=== PATIENT | female | born 1985 | race Caucasian/White ===

== ENCOUNTER 2021-12-15 11:16 | Inpatient (IN) ==
[2021-12-15] MEDS ORDERED: ACETAMINOPHEN 325 MG TABLET PO PRN (21:10)
[2021-12-15] MEDS ORDERED: ONDANSETRON 4 MG/2 ML VIAL IV PRN (21:10)
[2021-12-15] MEDS ORDERED: GLUCAGON 1 MG VIAL IM PRN (21:10)
[2021-12-15 21:12] LABS: Bilirubin,Urine Negative (Negative); Blood, Urine Negative (Negative); Glucose,Urine (UA) Negative (Negative); Ketones,Urine Negative (Negative); Mucus,Urine Occasional /LPF (Occasional); Nitrite,Urine Negative (Negative); Protein,Urine Negative; RBC,Urine 1 /HPF (0-4); Squamous Epithelial Cell,Urine Occasional /HPF (0-10); Urine Appearance CLEAR (Clear); Urine Color Yellow (Yellow); Urine Specific Gravity 1.013 (1.001-1.035); Urine Urobilinogen < 2.0 EU/DL (<2.0)
[2021-12-15] MEDS ORDERED: DEXTROSE 10% 25 GM/250 ML BAG IV PRN (21:13)
[2021-12-15 21:28] LABS: % Iron Saturation 2.6 % (18-50); Alanine Aminotransferase 10 U/L (13-56); Albumin 3.3 G/DL (3.4-5.0); Alkaline Phosphatase 45 U/L (45-117); Aspartate Amino Transferase 10 U/L (0-37); Basophils # 0.1 10*3/uL (0.0-0.2); Bilirubin,Total < 0.39 MG/DL (0.20-1.00); Blood Urea Nitrogen 8 MG/DL (7-18); Calcium 8.6 MG/DL (8.5-10.1); Carbon Dioxide 27 MMOL/L (21-32); Eosinophils # 0.3 10*3/uL (0.0-0.87); Eosinophils % 5.1 % (0.00-10.9); Estimated Glom Filtration Rate 122 ML/MIN; Ferritin 0.9 ng/mL (8-252); Free T4 (Free Thyroxine) 1.02 NG/DL (0.76-1.46); Glucose 102 MG/DL (74-106); Immature Granulocytes % 0.3 %; Immature Granulocytes Absolute 0.02 #; Iron 12 UG/DL (50-170); Iron Binding Capacity 458 UG/DL (250-450); Lymphocytes # 2.1 10*3/uL (1.4-4.0); Lymphocytes % 35.8 % (21.3-54.2); Mean Corpuscular HGB Conc 25.9 GM/DL (32-36); Mean Corpuscular Volume 64.4 FL (87-102); Mean Platelet Volume 10.3 FL (9.6-12.0); Monocytes % 9.9 % (1.7-12.7); Neutrophils % 47.9 % (38.7-73.9); Osmolality,Calculated 278.3 MOS/KG (273-304); Platelet Count 437 T/CUMM (130-400); Potassium 3.5 MMOL/L (3.5-5.1); Red Blood Count 3.12 MC/CUMM (3.8-5.5); Sodium 141 MMOL/L (136-145); Total Protein 6.8 G/DL (6.4-8.2); White Blood Count 5.9 T/CUMM (4-12)
[2021-12-15] MEDS ORDERED: LACTATED RINGERS 1,000 ML IV SCH (21:30)
[2021-12-15] MEDS ORDERED: SODIUM CHLORIDE 0.9% 1,000 ML IV PRN (21:48)
[2021-12-15] MEDS ORDERED: IRON SUCROSE 200 MG in SODIUM CHLORIDE 0.9% 100 ML IV ONE (21:49)
[2021-12-15 21:51] LABS: Hematocrit 20.1 VOL% (35.7-47.0); Hemoglobin 5.2 GM/DL (12.0-16.0)
[2021-12-15 22:45] LABS: Platelet Estimate Increased
[2021-12-15 22:46] LABS: Hypochromia 1+; Microcytosis 1+
[2021-12-16 08:57] LABS: Basophils # 0.1 10*3/uL (0.0-0.2); Basophils % 1.3 % (0.0-0.8); Eosinophils # 0.3 10*3/uL (0.0-0.87); Hematocrit 23.4 VOL% (35.7-47.0); Immature Granulocytes % 0.2 %; Immature Granulocytes Absolute 0.01 #; Lymphocytes # 1.8 10*3/uL (1.4-4.0); Lymphocytes % 33.9 % (21.3-54.2); Mean Corpuscular HGB Conc 27.8 GM/DL (32-36); Mean Corpuscular Volume 68.4 FL (87-102); Mean Platelet Volume 11.1 FL (9.6-12.0); Monocytes % 10.8 % (1.7-12.7); Neutrophils % 48.8 % (38.7-73.9); Red Blood Count 3.42 MC/CUMM (3.8-5.5); Red Cell Distribution Width 19.9 % (9.3-17.3); White Blood Count 5.4 T/CUMM (4-12)
[2021-12-16 08:59] LABS: Folate 10.63 NG/ML (5.38-24.0)
[2021-12-16 09:01] LABS: Hemoglobin 6.5 GM/DL (12.0-16.0); Platelet Count 336 T/CUMM (130-400)
[2021-12-16 09:08] LABS: Calcium 8.2 MG/DL (8.5-10.1); Osmolality,Calculated 279.1 MOS/KG (273-304); Potassium 3.7 MMOL/L (3.5-5.1)
[2021-12-16] MEDS: PANTOPRAZOLE 40 MG TABLET PO SCH (09:21)
[2021-12-16] MEDS: amLODIPine 10 MG TABLET PO SCH (09:21)
[2021-12-16] MEDS: hydroCHLOROthiazide 25 MG TABLET PO SCH (10:21)
[2021-12-16] MEDS: IRON SUCROSE 200 MG in SODIUM CHLORIDE 0.9% 100 ML IV SCH (10:46)
[2021-12-17 06:12] LABS: Basophils # 0.1 10*3/uL (0.0-0.2); Basophils % 1.6 % (0.0-0.8); Eosinophils # 0.4 10*3/uL (0.0-0.87); Eosinophils % 4.2 % (0.00-10.9); Hemoglobin 9.9 GM/DL (12.0-16.0); Immature Granulocytes % 0.7 %; Immature Granulocytes Absolute 0.06 #; Lymphocytes # 3.1 10*3/uL (1.4-4.0); Lymphocytes % 35.7 % (21.3-54.2); Mean Corpuscular HGB Conc 28.8 GM/DL (32-36); Mean Corpuscular Volume 72.4 FL (87-102); Mean Platelet Volume 10.5 FL (9.6-12.0); Monocytes % 10.2 % (1.7-12.7); NRBC # 0.03 10*3/uL; Neutrophils % 47.6 % (38.7-73.9); Platelet Count 411 T/CUMM (130-400); Red Blood Count 4.75 MC/CUMM (3.8-5.5); Red Cell Distribution Width 22.1 % (9.3-17.3); White Blood Count 8.6 T/CUMM (4-12)
[2021-12-17 06:14] LABS: Hematocrit 34.4 VOL% (35.7-47.0)
[2021-12-17 06:17] LABS: Platelet Estimate Normal
[2021-12-17 06:18] LABS: Anisocytosis 2+; Poikilocytosis Slight
[2021-12-17 06:19] LABS: Ovalocytes Few; Tear Drop Cells Few
[2021-12-17] MEDS: hydroCHLOROthiazide 25 MG TABLET PO SCH (08:31)
[2021-12-17] MEDS: amLODIPine 10 MG TABLET PO SCH (08:31)
[2021-12-17] MEDS: PANTOPRAZOLE 40 MG TABLET PO SCH (08:31)
[2021-12-17] MEDS: IRON SUCROSE 200 MG in SODIUM CHLORIDE 0.9% 100 ML IV SCH (10:07)
[2021-12-17 11:59] VITALS: BP 146/86
[2021-12-18] MEDS ORDERED: FERRIC GLUCONATE COMPLEX 125 MG in SODIUM CHLORIDE 0.9% 100 ML IV SCH (09:00)
== END 2021-12-17 12:54 | disposition home or self-care (01) | DRG 663 ==
LOC: N.ED 11:16 → N.EDINP 11:16 → SUATTDRO 21:10 → N.EDINP 12-16 14:24 → N.3E 12-16 14:39
PROVIDERS: ADMIT Internal Medicine; ATTEND Internal Medicine